=== PATIENT | male | born 1990 | race Caucasian/White ===

== ENCOUNTER 2017-03-06 13:53 | Emergency (ER) | payer SELFPAY ==
[~2017-03-06] VITALS: Ht 180.3 cm; Wt 60.8 kg
[2017-03-06 13:56] VITALS: Ht 180.3 cm; Wt 60.8 kg
[2017-03-06] MEDS ORDERED: HYDROCODONE/APAP (5/325) TAB PO ONE (14:30)
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
[2017-03-06] MEDS ORDERED: HYDR-906 PO (16:40)
[2017-03-06] MEDS ORDERED: IBUP-1542 PO (16:40)
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
[2017-03-06 16:53] VITALS: BP 126/72; PULSE 78; RESP 18; TEMP 98.1
== END 2017-03-06 16:53 | disposition home or self-care (01) ==
LOC: FTE 13:53
DX: S22.42XA Multiple fractures of ribs, left side, initial encounter for closed fracture (principal); S00.03XA Contusion of scalp, initial encounter; Y04.0XXA Assault by unarmed brawl or fight, initial encounter
CPT/HCPCS: 70450; 71100